=== PATIENT | female | born 1995 | race African-American/Black ===

== ENCOUNTER 2024-03-31 17:26 | Emergency (ER) | payer SELFPAY | END 2024-03-31 19:22 | disposition home or self-care (01) | LOC: CSHERS 17:26 | DX: M79.601 Pain in right arm (principal); I10 Essential (primary) hypertension; F17.210 Nicotine dependence, cigarettes, uncomplicated; W01.0XXA Fall on same level from slipping, tripping and stumbling without subsequent striking against object, initial encounter | CPT/HCPCS: 99283 ==